=== PATIENT | male | born 1990 | race Caucasian/White ===

== ENCOUNTER 2017-05-03 04:34 | Emergency (ER) | payer SELFPAY ==
[~2017-05-03] VITALS: Ht 170.2 cm; Wt 69.0 kg
[2017-05-03 05:02] LABS: HEMATOCRIT 45.6 % (38.0-50.0); MCH 30.6 PG (29.0-34.0); MCHC 33.6 G/DL (30.0-36.0); MCV 91.2 FL (86-99); MEAN PLAT.VOLUME 11.4 uM^3 (9.0-12.4); PLATELET COUNT 190 K/uL (156-360); RBC DIS.WIDTH-CV 12.8 % (11.8-14.6); RBC DIS.WIDTH-SD 42.9 % (39-53); WHITE BLOOD COUNT 8.6 K/uL (4.1-10.2)
[2017-05-03 05:14] LABS: CHLORIDE 107 mEq/L (99-109); POTASSIUM 3.9 mEq/L (3.7-5.4); SODIUM 141 mEq/L (136-147)
[2017-05-03 05:17] LABS: GLUCOSE 93 mg/dL (70-99)
[2017-05-03 05:18] LABS: ANION GAP 8 MEQ/L (2-14); TOTAL BILIRUBIN 0.8 mg/dL (0.0-1.0)
[2017-05-03 05:19] LABS: SERUM ETHYL ALCOHOL < 10 mg/dL
[2017-05-03 05:21] LABS: ALKALINE PHOSPHATASE 93 IU/L (3-129)
[2017-05-03 05:22] LABS: UREA NITROGEN (BUN) 17 mg/dL (9-23)
[2017-05-03 05:24] LABS: SALICYLATE < 5.0 MG/DL (15-30)
[2017-05-03 05:25] LABS: LIPASE 191 U/L (1.0-51.0)
[2017-05-03 05:27] LABS: GFR ESTIMATE (CALCULATED) > 59 mL/min/ (58.99-99999)
[2017-05-03 06:39] LABS: CREATINE KINASE 77 IU/L (1-294)
[2017-05-03 07:48] LABS: AMPHETAMINE NEGATIVE (500 ng/mL); BARBITURATES NEGATIVE (200 ng/mL); BENZODIAZEPINES PRESUMPTIVE POSITIVE (150 ng/mL); COCAINE NEGATIVE (150 ng/mL); INTERNAL CONTROLS VALID? YES; METHADONE NEGATIVE (200 ng/mL); METHAMPHETAMINE NEGATIVE (500 ng/mL); OPIATES (MORPHINE) NEGATIVE (100 ng/mL); OXYCODONE NEGATIVE (100 ng/mL); PHENCYCLIDINE NEGATIVE (25 ng/mL); PROPOXYPHENE NEGATIVE (300 ng/mL); THC CANNABINOIDS PRESUMPTIVE POSITIVE (50 ng/mL); TRICYCLIC ANTIDEPRESSANTS NEGATIVE (300 ng/mL)
[2017-05-03 07:49] LABS: ADD MEDTOX COMMENT Y
[2017-05-03 08:20] VITALS: BP 127/86
[2017-05-03 08:33] LABS: BENZODIAZEPINES QUANT VALUE 0 NG/ML; BENZODIAZEPINES, URINE SCREEN Negative (200 ng/mL)
== END 2017-05-03 08:34 | disposition home or self-care (01) ==
LOC: EME 04:34
PROVIDERS: Emergency Medicine
DX: R55 Syncope and collapse (principal); R74.8 Abnormal levels of other serum enzymes; R11.2 Nausea with vomiting, unspecified; R00.1 Bradycardia, unspecified; F17.200 Nicotine dependence, unspecified, uncomplicated
CPT/HCPCS: 70450; 71010; 74177; 80053; 82550; 83690; 84999; 85027; 93005; 99281; 99284; G0480; J7030

== ENCOUNTER 2017-06-02 20:59 | Emergency (ER) | payer SELFPAY ==
[~2017-06-02] VITALS: Ht 170.2 cm; Wt 66.9 kg
[2017-06-02 21:33] LABS: HEMATOCRIT 45.9 % (38.0-50.0); HEMOGLOBIN 15.9 G/DL (12.5-16.6); MCH 30.5 PG (29.0-34.0); MCHC 34.6 G/DL (30.0-36.0); MCV 87.9 FL (86-99); PLATELET COUNT 186 K/uL (156-360); RBC DIS.WIDTH-CV 12.9 % (11.8-14.6); RBC DIS.WIDTH-SD 41.6 % (39-53); RED BLOOD COUNT 5.22 M/uL (4.00-5.50); WHITE BLOOD COUNT 13.2 K/uL (4.1-10.2)
[2017-06-02 21:45] LABS: ALBUMIN 4.6 g/dL (3.2-4.8); CHLORIDE 100 mEq/L (99-109); POTASSIUM 4.1 mEq/L (3.7-5.4); SODIUM 133 mEq/L (136-147)
[2017-06-02 21:47] LABS: GLUCOSE 91 mg/dL (70-99); TOTAL PROTEIN 7.6 g/dL (6.4-8.3)
[2017-06-02 21:49] LABS: TOTAL BILIRUBIN 1.6 mg/dL (0.0-1.0)
[2017-06-02 21:51] LABS: ALKALINE PHOSPHATASE 97 IU/L (3-129); GFR ESTIMATE (CALCULATED) > 59 mL/min/ (58.99-99999)
[2017-06-02 21:52] LABS: UREA NITROGEN (BUN) 9 mg/dL (9-23)
[2017-06-02 21:53] LABS: AST (GOT) 25 IU/L (2-34)
[2017-06-02 21:54] LABS: ALT (GPT) 22 IU/L (3-49)
[2017-06-02 21:54] LABS: APPEARANCE SL.HAZY ((CLEAR)); BILIRUBIN NEGATIVE; BLOOD NEGATIVE; COLOR YELLOW ((YELLOW)); GLUCOSE (STRIP) NEGATIVE; KETONES 80; LEUKOCYTES TRACE; NITRITE NEGATIVE; PROTEIN (STRIP) 30; SPECIFIC GRAVITY 1.028 (1.000-1.030)
[2017-06-02 21:59] LABS: BACTERIA RARE /HPF; EPITHELIAL CELLS NONE SEEN /HPF; MUCUS 4+ /LPF; RED BLOOD CELLS 0-5 /HPF (0-5); UCUL ADDED? NO; WHITE BLOOD CELLS 0-5 /HPF (0-5)
[2017-06-02] MEDS ORDERED: NORCO 5/3251 TABLET PO (22:11)
[2017-06-02] MEDS ORDERED: MOTRIN600 MG PO (22:11)
[2017-06-02] MEDS ORDERED: FLEXERIL10 MG PO (22:11)
[2017-06-02 22:21] VITALS: BP 103/64
== END 2017-06-02 22:22 | disposition home or self-care (01) ==
LOC: EME 20:59
DX: M54.5 Low back pain (principal); R11.10 Vomiting, unspecified; F17.200 Nicotine dependence, unspecified, uncomplicated
CPT/HCPCS: 80053; 81003; 85027; 99281; 99284